=== PATIENT | male | born 1975 | race Caucasian/White ===

== ENCOUNTER → 2019-10-25 | Outpatient (CLI) | payer OTHER ==
--- NOTE | 2019-10-25 15:13 | Diagnostic Imaging Report ---
PROCEDURE: MRI left joint lower extremity without contrast. TECHNIQUE: Multiplanar, multisequence non contrast-enhanced MRI of the left lower extremity was accomplished. INDICATION: Increasing left knee pain. Fall one year ago. COMPARISON: None. FINDINGS: No acute fracture or dislocation is seen in the left knee. Alignment appears normal. There is no joint effusion. The articular cartilage in the patellofemoral compartment demonstrates mild surface irregularity but no full-thickness defects. The articular cartilage in the medial compartment demonstrates mild thinning and surface irregularity with no full-thickness defects. The cartilage in the lateral compartment demonstrates surface irregularity and no full-thickness defects. There is a horizontal tear of the medial meniscus at the posterior horn and body. The lateral meniscus appears intact. The anterior and posterior cruciate ligaments are intact. The medial collateral ligament and the lateral collateral ligamentous complex are intact. There is a small medial parameniscal cyst measuring 1.4 x 0.3 cm in size. The soft tissues about the left knee are otherwise unremarkable. The extensor mechanism is intact, although there is patellar enthesopathy. IMPRESSION: 1. Horizontal tear of the medial meniscus with a small medial parameniscal cyst. 2. Mild cartilage loss in the medial compartment. Dictated by: Dictated on workstation # [id number]
== END ==
LOC: RAD 13:52
PROVIDERS: ATTEND Orthopaedic Surgery
DX: S83.242A Other tear of medial meniscus, current injury, left knee, initial encounter (principal); M23.004 Cystic meniscus, unspecified medial meniscus, left knee; M94.8X6 Other specified disorders of cartilage, lower leg
CPT/HCPCS: 73721

== ENCOUNTER → 2019-11-25 | Outpatient (CLI) | payer OTHER | LOC: LAB FS 10:44 | PROVIDERS: ATTEND Orthopaedic Surgery | DX: Z01.812 Encounter for preprocedural laboratory examination (principal); Z20.828 Contact with and (suspected) exposure to other viral communicable diseases | CPT/HCPCS: 87635 ==